=== PATIENT | male | born 1970 | race Caucasian/White ===

== ENCOUNTER 2021-07-16 20:32 | Emergency (ER) | payer OTHER, MEDICAID ==
[~2021-07-16] VITALS: Ht 172.7 cm; Wt 124.7 kg
[2021-07-16 20:44] VITALS: BP_SYST 97
[2021-07-16] MEDS ORDERED: PRAV40TA63 PO (20:59)
[2021-07-16] MEDS ORDERED: ONDA4TAB5 PO (20:59)
[2021-07-16] MEDS ORDERED: ZAN4 PO (20:59)
[2021-07-16] MEDS ORDERED: ZOLP5TAB2 PO (20:59)
--- NOTE | 2021-07-16 21:09 | NUR ---
Placed in room 02 . Placed on horticultural specialty grower inside, blood pressure machine and pulse oximeter. To gown for exam. Side rails up. Report given to SURJIT YANES
--- NOTE | 2021-07-16 21:11 | NUR ---
Patient BIB by BLS/EMS from [facility]. C/O abdominal pain x 1 day. Patient reported, had abdominal pain with diarrhea since yesterday. A/O,X4, lower abdominal pain, pain rate 7/10, lower back pain, place patient on nuclear monitoring technician and pulse ox. Hx ESRD (Dialysis M-W-F), A-Fib, Hypotension, GERD, HLD, Hemorrhoids, Pacemaker.
[2021-07-16] MEDS ORDERED: APIX5TAB4 PO (21:15)
[2021-07-16] MEDS ORDERED: MIDO5TAB4 PO (21:15)
[2021-07-16] MEDS ORDERED: PRO40 PO (21:15)
[2021-07-16] MEDS ORDERED: ACET160S2 PO (21:15)
[2021-07-16] MEDS ORDERED: GABA-529 PO (21:15)
[2021-07-16] MEDS ORDERED: DOCU-144 PO (21:15)
--- NOTE | 2021-07-16 21:15 | NUR ---
Medication reconciliation completed with information provided by facility documents. Any prior medication reconciliation on file was reviewed and corrected.
--- NOTE | 2021-07-16 22:11 | NUR ---
ER at bedside examining patient.
[2021-07-16] MEDS ORDERED: DICYCLOMINE HCL 10 MG CAPSULE PO ONE (22:30)
[2021-07-16] MEDS ORDERED: ONDANSETRON HCL 4 MG/2 ML VIAL IVP ONE (22:30)
[2021-07-16] MEDS ORDERED: DICYCLOMINE HCL 10 MG/5 ML SOLUTION ONE (22:39)
--- NOTE | 2021-07-16 22:45 | NUR ---
# 20 gauge angiocath placed to RAC. Use of asceptic technique. Opsite placed over site. Blood return noted. Blood for lab drawn from site. Flushed with 10 cc of normal saline. No evidence of infiltration noted. Patient tolerated well.
--- NOTE | 2021-07-16 23:24 | NUR ---
Changed and cleaned patient after patient had diarrhea.
--- NOTE | 2021-07-16 23:30 | NUR ---
CXR at bedside.
[2021-07-17 00:05] LABS: ALANINE AMINOTRANSFERASE 8 U/L (12-78); ALBUMIN 2.7 g/dL (3.4-4.8); ANION GAP 8 (5-15); ASPARTATE AMINOTRANSFERASE 10 U/L (10-37); CHLORIDE 98 mmol/L (98-107); CREATININE 7.31 mg/dL (0.55-1.30); GLUCOSE 145 mg/dL (70-99); LIPASE 65 U/L (73-393); POTASSIUM 3.7 mmol/L (3.5-5.1); SODIUM SERUM 138 mmol/L (136-145); TOTAL BILIRUBIN 0.8 mg/dL (0.0-1.0); UREA NITROGEN, BLOOD 30 mg/dL (8-21)
[2021-07-17 00:06] LABS: BASOPHILS # (AUTO) 0.1 K/uL (0.0-0.2); BASOPHILS % (AUTO) 0.7 % (0.0-2.0); EOSINOPHILS # (AUTO) 0.3 K/uL (0.0-0.4); EOSINOPHILS % (AUTO) 2.5 % (0.0-4.0); HEMATOCRIT 42.2 % (36-54); HEMOGLOBIN 13.5 g/dL (14.0-18.0); MEAN CORPUSCULAR HEMOGLOBIN 29 pg (27-31); MEAN CORPUSCULAR HGB CONC 32 % (32-36); MEAN CORPUSCULAR VOLUME 91 fL (79.0-98.0); MONOCYTES # (AUTO) 1.2 K/uL (0.0-1.0); MONOCYTES % (AUTO) 10.4 % (1.7-9.3); NEUTROPHILS # (AUTO) 8.9 K/uL (1.8-7.7); NEUTROPHILS % (AUTO) 77.4 % (40.0-70.0); PLATELET COUNT (AUTO) 275 K/uL (130-430); RED BLOOD CELL COUNT(AUTO) 4.66 MIL/uL (4.2-6.2); RED CELL DISTRIBUTION WIDTH 17.1 % (9.0-15.0); WHITE BLOOD COUNT (AUTO) 11.5 K/uL (4.8-10.8)
[2021-07-17 00:07] LABS: GFR AFRICAN AMERICAN 10 mL/min (>90)
--- NOTE | 2021-07-17 00:07 | NUR ---
Patient is sleeping, no acute distress.
--- NOTE | 2021-07-17 00:39 | NUR ---
Dr. Wallace at bedside to explain results, and treatment plans.
[2021-07-17] MEDS ORDERED: MORPHINE 4 MG INJ. 4 MG/ML VIAL IVP ONE (01:00)
[2021-07-17] MEDS ORDERED: MORPHINE 4 MG INJ. 4 MG/ML VIAL ONE (01:16)
[2021-07-17 01:57] VITALS: BP_SYST 126
--- NOTE | 2021-07-17 01:57 | NUR ---
Patient given written and verbal discharge instructions and verbalizes understanding. ER MD discussed with patient the results and treatment provided. Patient in stable condition. ID arm band removed. IV catheter removed intact and dressing applied, no active bleeding. No Rx given. Patient educated on pain management and to follow up with PMD. Pain Scale 0/10 Opportunity for questions provided and answered. Report given to SURJIT Buckley at [facility]
== END 2021-07-17 01:57 | disposition home or self-care (01) ==
LOC: SED 20:32
DX: K52.9 Noninfective gastroenteritis and colitis, unspecified (principal); I12.0 Hypertensive chronic kidney disease with stage 5 chronic kidney disease or end stage renal disease; N18.6 End stage renal disease; I10 Essential (primary) hypertension; Z79.899 Other long term (current) drug therapy; Z99.2 Dependence on renal dialysis
CPT/HCPCS: 36415; 71045; 80053; 83690; 84484; 85025; 93005; 96374; 96375; 99285; J2270; J2405